=== PATIENT | male | born 1965 | race Hispanic/Latino ===

== ENCOUNTER 2018-02-16 09:15 | Inpatient (IN) | payer MEDICARE ==
[~2018-02-16] VITALS: Ht 188 cm; Wt 120.7 kg
[2018-02-16 09:55] LABS: BASOPHILS % (AUTO) 0.4 % (0.0-5.0); EOSINOPHILS % (AUTO) 1.1 % (0.0-8.0); HEMATOCRIT 29.8 % (42-54); LYMPHOCYTES % (AUTO) 5.6 % (21.0-51.0); MEAN CORPUSCULAR HGB CONC 33.1 g/dL (32.0-36.0); MEAN CORPUSCULAR VOLUME 78.6 fL (79-99); MONOCYTES % (AUTO) 1.9 % (3.0-13.0); NUCLEATED RED BLOOD CELLS 0.1 % (0.0-0.19); PLATELET COUNT (AUTO) 159 K/uL (130-400); RED CELL DISTRIBUTION WIDTH 17.5 % (11.0-15.5); WHITE BLOOD COUNT (AUTO) 6.7 K/uL (4.8-10.8)
[2018-02-16 10:04] LABS: INR 1.2 (0.85-1.15); PARTIAL THROMBOPLASTIN TIME 26.4 SEC (26.3-35.5); PROTHROMBIN TIME 12.6 SEC (9.6-11.6)
[2018-02-16 10:05] LABS: BILIRUBIN,URINE NEGATIVE (NEGATIVE); COLOR,URINE YELLOW (YELLOW); GLUCOSE, URINE (UA) 250 mg/dL (NEGATIVE); KETONES,URINE NEGATIVE (NEGATIVE); LEUKOCYTE ESTERASE ,URINE TRACE (NEGATIVE); NITRATE,URINE NEGATIVE (NEGATIVE); OCCULT BLOOD,URINE SMALL (NEGATIVE); PROTEIN,URINE >=300 (NEGATIVE)
[2018-02-16] MEDS ORDERED: SODIUM CHLORIDE 0.9% 1000ML 1,000 ML IV ONE (10:05)
[2018-02-16 10:06] LABS: APPEARANCE,URINE HAZY (CLEAR)
[2018-02-16] MEDS ORDERED: ACETAMINOPHEN EXTRA STRENGTH 500 MG TABLET ONE (10:06)
[2018-02-16 10:08] LABS: AMORPHOUS SEDIMENT,UR Few /LPF (None Seen); BACTERIA,URINE Few /HPF (None Seen); SQUAMOUS EPITHELIAL CELL,UR Few /HPF (0-2)
[2018-02-16 10:12] LABS: ALBUMIN 2.7 g/dL (3.5-5.0); BILIRUBIN,TOTAL 1.1 mg/dL (0.2-1.0); POTASSIUM 4.9 mmol/L (3.5-5.1); TOTAL PROTEIN, SERUM 7.7 g/dL (6.0-8.3)
[2018-02-16 10:16] LABS: CREATININE 8.2 mg/dL (0.5-1.5)
[2018-02-16] MEDS ORDERED: MEROPENEM 1 GM VIAL ONE (10:51)
[2018-02-16] MEDS ORDERED: VANCOMYCIN 1.75 GM in SODIUM CHLORIDE 0.9% 250 ML IV SCH (11:30)
[2018-02-16 14:25] VITALS: BP 114/52
[2018-02-16] MEDS ORDERED: VANCOMYCIN PROTOCOL PER PHARMACY IV SCH (14:45)
[2018-02-16 15:58] VITALS: BP 113/50
[2018-02-16] MEDS ORDERED: HYDRALAZINE HCL 20 MG/ML VIAL IV PRN (18:30)
[2018-02-16 19:31] VITALS: BP 111/59
[2018-02-16] MEDS: HYDROCODONE/ACETAMINOPHEN 5/325 MG TAB PO PRN (20:15)
[2018-02-16] MEDS: HEPARIN SODIUM 5000UNIT/ML 1ML VIAL SQ SCH (20:17)
[2018-02-16] MEDS: OSELTAMIVIR PHOSPHATE 75 MG CAP PO SCH (20:19)
[2018-02-16] MEDS: LEVOFLOXACIN 500 MG/D5W 100 ML 100 ML IV SCH (20:19)
[2018-02-16] MEDS: INSULIN HUMULIN R 100 UNIT/ML 3ML SQ SCH (21:25)
[2018-02-16 23:29] VITALS: BP 119/49
[2018-02-16] MEDS: IPRATROPIUM/ALBUTEROL SULFATE 3 ML SOLUTION IH SCH (23:42)
[2018-02-17 03:27] LABS: BASOPHILS % (AUTO) 0.2 % (0.0-5.0); EOSINOPHILS % (AUTO) 1.4 % (0.0-8.0); HEMATOCRIT 26.1 % (42-54); LYMPHOCYTES % (AUTO) 6.8 % (21.0-51.0); MEAN CORPUSCULAR HEMOGLOBIN 25.6 pg (27.0-33.0); MEAN CORPUSCULAR HGB CONC 32.7 g/dL (32.0-36.0); MEAN CORPUSCULAR VOLUME 78.1 fL (79-99); MONOCYTES % (AUTO) 11.8 % (3.0-13.0); NEUTROPHILS % (AUTO) 79.8 % (40.0-77.0); PLATELET COUNT (AUTO) 127 K/uL (130-400); RED BLOOD CELL COUNT(AUTO) 3.34 MIL/uL (4.50-6.20); RED CELL DISTRIBUTION WIDTH 17.6 % (11.0-15.5); WHITE BLOOD COUNT (AUTO) 12.9 K/uL (4.8-10.8)
[2018-02-17 03:46] LABS: ALBUMIN 2.1 g/dL (3.5-5.0); BILIRUBIN,TOTAL 1.2 mg/dL (0.2-1.0); MAGNESIUM 2.1 mg/dL (1.80-2.40); PHOSPHORUS 5.9 mg/dL (2.5-4.9); POTASSIUM 4.8 mmol/L (3.5-5.1); TOTAL PROTEIN, SERUM 6.6 g/dL (6.0-8.3)
[2018-02-17 03:46] LABS: ABG BASE EXCESS -1.4 mmol/L (-2.0-3.0); ABG HCO3 23.6 mmol/L (21.0-28.0); ABG OXYGEN SATURATION 96.5 % (95.0-99.0); ABG PCO2 41 mmHg (35-48)
[2018-02-17 03:49] VITALS: BP 107/65
[2018-02-17 03:52] LABS: CREATININE 9.3 mg/dL (0.5-1.5)
[2018-02-17] MEDS: HYDROCODONE/ACETAMINOPHEN 5/325 MG TAB PO PRN ×2 (05:09→15:51)
[2018-02-17] MEDS: HEPARIN SODIUM 5000UNIT/ML 1ML VIAL SQ SCH ×2 (05:10→18:30)
[2018-02-17] MEDS: INSULIN HUMULIN R 100 UNIT/ML 3ML SQ SCH ×4 (05:29→22:03)
[2018-02-17] MEDS: IPRATROPIUM/ALBUTEROL SULFATE 3 ML SOLUTION IH SCH ×3 (06:07→18:28)
[2018-02-17 07:40] VITALS: BP 97/52
[2018-02-17] MEDS: OSELTAMIVIR PHOSPHATE 75 MG CAP PO SCH (08:51)
[2018-02-17] MEDS: MEROPENEM 1 GM VIAL IVP SCH (08:51)
[2018-02-17] MEDS ORDERED: AMLO10TA2 PO (09:24)
[2018-02-17] MEDS ORDERED: LOSA50TA37 PO (09:24)
[2018-02-17] MEDS ORDERED: AEC81 PO (09:24)
[2018-02-17] MEDS ORDERED: CARV12.511 PO (09:24)
[2018-02-17] MEDS ORDERED: FURO40TA5 PO (09:24)
[2018-02-17] MEDS ORDERED: AMIT25TA9 PO (09:24)
[2018-02-17] MEDS ORDERED: PRAV20TA4 PO (09:24)
[2018-02-17] MEDS ORDERED: ESCI10TA54 PO (09:24)
[2018-02-17 11:16] VITALS: BP 113/61
[2018-02-17] MEDS ORDERED: COMPOUND IV REFRIGERATED 1 EACH IVSOLN MISC PRN (12:30)
[2018-02-17 12:46] LABS: CREATINE KINASE MB 1.2 ng/mL (0.5-3.6); TROPONIN I 0.04 ng/mL (0.00-0.06)
[2018-02-17] MEDS ORDERED: SODIUM CHLORIDE 0.9% 1000ML 1,000 ML IV ONE (13:34)
[2018-02-17] MEDS ORDERED: HEPARIN SODIUM 5000UNIT/ML 1ML VIAL IJ PRN (16:00)
[2018-02-17] MEDS ORDERED: SODIUM CHLORIDE 0.9% 1000ML 1,000 ML IV PRN (16:00)
[2018-02-17] MEDS ORDERED: 0.9% SODIUM CHLORIDE 250 ML IV BAG IV PRN (16:00)
[2018-02-17] MEDS ORDERED: ALBUMIN (HUMAN) 25% 100 ML IV PRN (16:00)
[2018-02-17 16:38] VITALS: BP 113/56
[2018-02-17 19:29] VITALS: BP 110/46
[2018-02-17 20:28] LABS: CREATINE KINASE MB 0.9 ng/mL (0.5-3.6)
[2018-02-17 23:33] VITALS: BP 115/59
[2018-02-18] VITALS (13 sets, daily range): BP systolic 117–147; BP diastolic 58–68
[2018-02-18] MEDS: IPRATROPIUM/ALBUTEROL SULFATE 3 ML SOLUTION IH SCH ×5 (00:19→23:35)
[2018-02-18 03:48] LABS: BASOPHILS % (AUTO) 0.7 % (0.0-5.0); EOSINOPHILS % (AUTO) 1.2 % (0.0-8.0); HEMATOCRIT 27.1 % (42-54); LYMPHOCYTES % (AUTO) 8.1 % (21.0-51.0); MEAN CORPUSCULAR HEMOGLOBIN 25.7 pg (27.0-33.0); MEAN CORPUSCULAR VOLUME 77.9 fL (79-99); MONOCYTES % (AUTO) 14.4 % (3.0-13.0); NEUTROPHILS % (AUTO) 75.6 % (40.0-77.0); PLATELET COUNT (AUTO) 158 K/uL (130-400); RED BLOOD CELL COUNT(AUTO) 3.48 MIL/uL (4.50-6.20); RED CELL DISTRIBUTION WIDTH 17.3 % (11.0-15.5)
[2018-02-18 04:02] LABS: INR 1.15 (0.85-1.15); PARTIAL THROMBOPLASTIN TIME 31.6 SEC (26.3-35.5)
[2018-02-18 04:11] LABS: CARBON DIOXIDE 26 mmol/L (21-32); CHLORIDE 95 mmol/L (101-111); CREATINE KINASE MB < 0.5 ng/mL (0.5-3.6); CREATINE KINASE, TOTAL 52 U/L (21-232); CREATININE 7.6 mg/dL (0.5-1.5); GLOMERULAR FILTR. RATE CALC 8 mL/min (>60); GLUCOSE,RANDOM 227 mg/dL (70-105); POTASSIUM 4.6 mmol/L (3.5-5.1); SODIUM SERUM 133 mmol/L (136-145); UREA NITROGEN, BLOOD 56 mg/dL (7-18)
[2018-02-18] MEDS: INSULIN HUMULIN R 100 UNIT/ML 3ML SQ SCH ×4 (07:03→21:00)
[2018-02-18] MEDS: HYDROCODONE/ACETAMINOPHEN 5/325 MG TAB PO PRN ×2 (07:17→22:44)
[2018-02-18] MEDS ORDERED: LIDOCAINE HCL 1% MDV 50ML VIAL ONE (08:15)
[2018-02-18] MEDS: MEROPENEM 1 GM VIAL IVP SCH ×2 (09:00→10:08)
[2018-02-18] MEDS: VANCOMYCIN 1.5 GM in SODIUM CHLORIDE 0.9% 250 ML IV SCH (09:00)
[2018-02-18] MEDS: BACITRACIN 28.4 GM OINT TP SCH (14:00)
[2018-02-18] MEDS: PHARMACY COMMUNICATION MISC SCH (14:00)
[2018-02-18] MEDS ORDERED: ACETAMINOPHEN 325 MG TAB PO PRN (16:30)
[2018-02-18] MEDS: LEVOFLOXACIN 500 MG/D5W 100 ML 100 ML IV SCH ×2 (18:30→22:42)
[2018-02-18] MEDS: OSELTAMIVIR PHOSPHATE 75 MG CAP PO SCH (22:41)
[2018-02-19] MEDS: VANCOMYCIN 1.5 GM in SODIUM CHLORIDE 0.9% 250 ML IV SCH (00:34)
[2018-02-19 03:25] VITALS: BP 114/55
[2018-02-19] MEDS: IPRATROPIUM/ALBUTEROL SULFATE 3 ML SOLUTION IH SCH ×4 (06:26→22:36)
[2018-02-19] MEDS: INSULIN HUMULIN R 100 UNIT/ML 3ML SQ SCH ×4 (06:53→21:55)
[2018-02-19 07:22] VITALS: BP 98/56
[2018-02-19] MEDS: MEROPENEM 1 GM VIAL IVP SCH (10:04)
[2018-02-19] MEDS: PHARMACY COMMUNICATION MISC SCH (10:05)
[2018-02-19] MEDS: BACITRACIN 28.4 GM OINT TP SCH (10:05)
[2018-02-19 11:39] VITALS: BP 119/44
[2018-02-19] MEDS: HYDROCODONE/ACETAMINOPHEN 5/325 MG TAB PO PRN (15:58)
[2018-02-19 16:01] VITALS: BP 134/65
[2018-02-19] MEDS ORDERED: FLUCONAZOLE 400 MG/NS 200 ML 200 ML IV ONE (17:15)
[2018-02-19] MEDS ORDERED: FLUCONAZOLE 200 MG/NS 100 ML 100 ML IV SCH (17:44)
[2018-02-19] MEDS: OSELTAMIVIR PHOSPHATE 75 MG CAP PO SCH (19:49)
[2018-02-19 20:16] VITALS: BP 128/63
[2018-02-19 23:52] VITALS: BP 116/58
[2018-02-20 04:40] VITALS: BP 113/65
[2018-02-20] MEDS: IPRATROPIUM/ALBUTEROL SULFATE 3 ML SOLUTION IH SCH ×3 (06:14→18:23)
[2018-02-20 06:37] VITALS: BP 113/65
[2018-02-20] MEDS: INSULIN HUMULIN R 100 UNIT/ML 3ML SQ SCH ×4 (07:11→21:07)
[2018-02-20 07:30] VITALS: BP 139/71
[2018-02-20] MEDS: MEROPENEM 1 GM VIAL IVP SCH (09:13)
[2018-02-20] MEDS: PHARMACY COMMUNICATION MISC SCH (09:13)
[2018-02-20] MEDS: HYDROCODONE/ACETAMINOPHEN 5/325 MG TAB PO PRN ×2 (09:18→20:11)
[2018-02-20] MEDS: BACITRACIN 28.4 GM OINT TP SCH (09:21)
[2018-02-20 09:50] LABS: BASOPHILS % (AUTO) 0.4 % (0.0-5.0); EOSINOPHILS % (AUTO) 2.6 % (0.0-8.0); HEMATOCRIT 27.2 % (42-54); MEAN CORPUSCULAR HEMOGLOBIN 26.1 pg (27.0-33.0); MEAN CORPUSCULAR VOLUME 79.2 fL (79-99); MONOCYTES % (AUTO) 9.3 % (3.0-13.0); NEUTROPHILS % (AUTO) 78.7 % (40.0-77.0); PLATELET COUNT (AUTO) 242 K/uL (130-400); RED BLOOD CELL COUNT(AUTO) 3.44 MIL/uL (4.50-6.20); RED CELL DISTRIBUTION WIDTH 17.7 % (11.0-15.5); WHITE BLOOD COUNT (AUTO) 15.4 K/uL (4.8-10.8)
[2018-02-20 10:15] LABS: HEMOGLOBIN A1C 9.5 % (4.0-6.0)
[2018-02-20 11:11] LABS: ALBUMIN 2.1 g/dL (3.5-5.0); BILIRUBIN,TOTAL 0.6 mg/dL (0.2-1.0); POTASSIUM 4.4 mmol/L (3.5-5.1)
[2018-02-20 11:21] LABS: CREATININE 8.4 mg/dL (0.5-1.5)
[2018-02-20 11:38] VITALS: BP 148/68
[2018-02-20] MEDS: HEPARIN SODIUM 5000UNIT/ML 1ML VIAL SQ SCH (11:41)
[2018-02-20] MEDS: FLUCONAZOLE 400 MG/NS 200 ML 200 ML IV NR (14:46)
[2018-02-20] MEDS: VANCOMYCIN 1.5 GM in SODIUM CHLORIDE 0.9% 250 ML IV SCH (14:46)
[2018-02-20 16:19] VITALS: BP 138/73
[2018-02-20] MEDS: OSELTAMIVIR PHOSPHATE 75 MG CAP PO SCH (20:07)
[2018-02-20 20:11] VITALS: BP 116/66
[2018-02-20] MEDS: INSULIN GLARGINE 100 UNITS/ML 10 ML VIAL SQ SCH (21:08)
[2018-02-21] MEDS: IPRATROPIUM/ALBUTEROL SULFATE 3 ML SOLUTION IH SCH ×5 (00:29→23:56)
[2018-02-21 01:58] VITALS: BP 134/66
[2018-02-21 03:24] VITALS: BP 123/66
[2018-02-21 04:03] LABS: HEMATOCRIT 24.7 % (42-54); MEAN CORPUSCULAR VOLUME 78.6 fL (79-99); PLATELET COUNT (AUTO) 280 K/uL (130-400); RED BLOOD CELL COUNT(AUTO) 3.14 MIL/uL (4.50-6.20); RED CELL DISTRIBUTION WIDTH 17.6 % (11.0-15.5); WHITE BLOOD COUNT (AUTO) 13.6 K/uL (4.8-10.8)
[2018-02-21] MEDS: INSULIN GLARGINE 100 UNITS/ML 10 ML VIAL SQ SCH ×2 (05:58→20:31)
[2018-02-21] MEDS: INSULIN HUMULIN R 100 UNIT/ML 3ML SQ SCH ×4 (05:58→20:42)
[2018-02-21 07:16] VITALS: BP 127/62
[2018-02-21] MEDS: FLUCONAZOLE 200 MG/NS 100 ML 100 ML IV SCH (09:03)
[2018-02-21] MEDS: MEROPENEM 1 GM VIAL IVP SCH (09:03)
[2018-02-21] MEDS: PHARMACY COMMUNICATION MISC SCH (09:04)
[2018-02-21] MEDS: BACITRACIN 28.4 GM OINT TP SCH (09:04)
[2018-02-21 11:13] VITALS: BP 131/59
[2018-02-21 16:45] VITALS: BP 116/50
[2018-02-21 20:01] VITALS: BP 147/68
[2018-02-21] MEDS: OSELTAMIVIR PHOSPHATE 75 MG CAP PO SCH (20:28)
[2018-02-21] MEDS: HYDROCODONE/ACETAMINOPHEN 5/325 MG TAB PO PRN (20:29)
[2018-02-22] VITALS (7 sets, daily range): BP systolic 129–160; BP diastolic 56–73
[2018-02-22] MEDS: INSULIN GLARGINE 100 UNITS/ML 10 ML VIAL SQ SCH ×2 (06:03→20:54)
[2018-02-22] MEDS: INSULIN HUMULIN R 100 UNIT/ML 3ML SQ SCH ×5 (06:04→21:00)
[2018-02-22] MEDS: IPRATROPIUM/ALBUTEROL SULFATE 3 ML SOLUTION IH SCH ×3 (06:12→18:57)
[2018-02-22] MEDS: MEROPENEM 1 GM VIAL IVP SCH (08:36)
[2018-02-22] MEDS: PHARMACY COMMUNICATION MISC SCH (09:00)
[2018-02-22] MEDS: HYDROCODONE/ACETAMINOPHEN 5/325 MG TAB PO PRN (10:03)
[2018-02-22] MEDS: VANCOMYCIN 1.5 GM in SODIUM CHLORIDE 0.9% 250 ML IV SCH (10:07)
[2018-02-22 11:20] LABS: BASOPHILS % (AUTO) 0.4 % (0.0-5.0); EOSINOPHILS % (AUTO) 3.5 % (0.0-8.0); HEMATOCRIT 25.1 % (42-54); LYMPHOCYTES % (AUTO) 11.6 % (21.0-51.0); MEAN CORPUSCULAR HEMOGLOBIN 26.5 pg (27.0-33.0); MEAN CORPUSCULAR HGB CONC 33.5 g/dL (32.0-36.0); MEAN CORPUSCULAR VOLUME 79.2 fL (79-99); MONOCYTES % (AUTO) 9.2 % (3.0-13.0); NEUTROPHILS % (AUTO) 75.3 % (40.0-77.0); PLATELET COUNT (AUTO) 305 K/uL (130-400); RED BLOOD CELL COUNT(AUTO) 3.17 MIL/uL (4.50-6.20); RED CELL DISTRIBUTION WIDTH 17.7 % (11.0-15.5); WHITE BLOOD COUNT (AUTO) 12.6 K/uL (4.8-10.8)
[2018-02-22 11:37] LABS: POTASSIUM 4.1 mmol/L (3.5-5.1)
[2018-02-22 11:40] LABS: CREATININE 8.8 mg/dL (0.5-1.5)
[2018-02-22] MEDS: BACITRACIN 28.4 GM OINT TP SCH (12:18)
[2018-02-22] MEDS: FLUCONAZOLE 200 MG/NS 100 ML 100 ML IV SCH (12:21)
[2018-02-22] MEDS: OSELTAMIVIR PHOSPHATE 75 MG CAP PO SCH (20:19)
[2018-02-23] MEDS: IPRATROPIUM/ALBUTEROL SULFATE 3 ML SOLUTION IH SCH ×3 (00:29→11:02)
[2018-02-23 04:00] VITALS: BP 143/71
[2018-02-23 04:42] LABS: BASOPHILS % (AUTO) 0.3 % (0.0-5.0); EOSINOPHILS % (AUTO) 4.4 % (0.0-8.0); HEMATOCRIT 27.8 % (42-54); MEAN CORPUSCULAR HEMOGLOBIN 27.1 pg (27.0-33.0); MEAN CORPUSCULAR HGB CONC 34.2 g/dL (32.0-36.0); MEAN CORPUSCULAR VOLUME 79.4 fL (79-99); MONOCYTES % (AUTO) 8.4 % (3.0-13.0); NEUTROPHILS % (AUTO) 69.9 % (40.0-77.0); PLATELET COUNT (AUTO) 422 K/uL (130-400); RED CELL DISTRIBUTION WIDTH 17.2 % (11.0-15.5); WHITE BLOOD COUNT (AUTO) 11.3 K/uL (4.8-10.8)
[2018-02-23 05:06] LABS: POTASSIUM 4.6 mmol/L (3.5-5.1)
[2018-02-23 05:31] LABS: CREATININE 10.6 mg/dL (0.5-1.5)
[2018-02-23] MEDS: INSULIN HUMULIN R 100 UNIT/ML 3ML SQ SCH ×3 (05:34→16:30)
[2018-02-23] MEDS: INSULIN GLARGINE 100 UNITS/ML 10 ML VIAL SQ SCH (06:08)
[2018-02-23 08:00] VITALS: BP 137/75
[2018-02-23 11:00] VITALS: BP 131/80
[2018-02-23] MEDS: FLUCONAZOLE 400 MG/NS 200 ML 200 ML IV NR (14:23)
[2018-02-23] MEDS: MEROPENEM 1 GM VIAL IVP SCH (14:23)
[2018-02-23] MEDS: BACITRACIN 28.4 GM OINT TP SCH (14:24)
[2018-02-23] MEDS: PHARMACY COMMUNICATION MISC SCH (14:24)
[2018-02-24] MEDS ORDERED: FOLIC ACID 1 MG TABLET PO SCH (09:00)
[2018-02-24] MEDS ORDERED: THIAMINE HCL 100 MG TABLET PO SCH (09:00)
== END 2018-02-23 16:57 | DRG 314 ==
LOC: EDH 09:15 → EDHIP 11:56 → 2AH 14:00
PROVIDERS: ADMIT Family Medicine; ATTEND Family Medicine
PROC: 5A1D70Z Performance of Urinary Filtration, Intermittent, Less than 6 Hours Per Day (ICD-10-PCS; principal; 2018-02-17)
PROC: 5A1D70Z Performance of Urinary Filtration, Intermittent, Less than 6 Hours Per Day (ICD-10-PCS; 2018-02-18)
PROC: 5A1D70Z Performance of Urinary Filtration, Intermittent, Less than 6 Hours Per Day (ICD-10-PCS; 2018-02-18)
PROC: 5A09357 Assistance with Respiratory Ventilation, Less than 24 Consecutive Hours, Continuous Positive Airway Pressure (ICD-10-PCS; 2018-02-18)
PROC: 05PY33Z Removal of Infusion Device from Upper Vein, Percutaneous Approach (ICD-10-PCS; 2018-02-18)
PROC: 5A09357 Assistance with Respiratory Ventilation, Less than 24 Consecutive Hours, Continuous Positive Airway Pressure (ICD-10-PCS; 2018-02-19)
PROC: 5A1D70Z Performance of Urinary Filtration, Intermittent, Less than 6 Hours Per Day (ICD-10-PCS; 2018-02-20)
PROC: 5A09357 Assistance with Respiratory Ventilation, Less than 24 Consecutive Hours, Continuous Positive Airway Pressure (ICD-10-PCS; 2018-02-20)
PROC: 5A1D70Z Performance of Urinary Filtration, Intermittent, Less than 6 Hours Per Day (ICD-10-PCS; 2018-02-23)
DX: T82.7XXA Infection and inflammatory reaction due to other cardiac and vascular devices, implants and grafts, initial encounter (principal); A41.9 Sepsis, unspecified organism; I12.0 Hypertensive chronic kidney disease with stage 5 chronic kidney disease or end stage renal disease; R65.20 Severe sepsis without septic shock; J18.9 Pneumonia, unspecified organism; J81.1 Chronic pulmonary edema; J96.91 Respiratory failure, unspecified with hypoxia; J96.01 Acute respiratory failure with hypoxia; N18.6 End stage renal disease; E87.1 Hypo-osmolality and hyponatremia; J44.0 Chronic obstructive pulmonary disease with (acute) lower respiratory infection; J44.1 Chronic obstructive pulmonary disease with (acute) exacerbation; L03.119 Cellulitis of unspecified part of limb; M86.9 Osteomyelitis, unspecified; E11.21 Type 2 diabetes mellitus with diabetic nephropathy; E11.42 Type 2 diabetes mellitus with diabetic polyneuropathy; W19.XXXA Unspecified fall, initial encounter; B34.9 Viral infection, unspecified; B95.2 Enterococcus as the cause of diseases classified elsewhere; B96.89 Other specified bacterial agents as the cause of diseases classified elsewhere; D63.8 Anemia in other chronic diseases classified elsewhere; E11.22 Type 2 diabetes mellitus with diabetic chronic kidney disease; E11.51 Type 2 diabetes mellitus with diabetic peripheral angiopathy without gangrene; E11.621 Type 2 diabetes mellitus with foot ulcer; E11.628 Type 2 diabetes mellitus with other skin complications; E11.69 Type 2 diabetes mellitus with other specified complication; E66.01 Morbid (severe) obesity due to excess calories; E78.5 Hyperlipidemia, unspecified; E87.70 Fluid overload, unspecified; G47.33 Obstructive sleep apnea (adult) (pediatric); L97.529 Non-pressure chronic ulcer of other part of left foot with unspecified severity; M12.9 Arthropathy, unspecified; M14.679 Charcot's joint, unspecified ankle and foot; Y83.8 Other surgical procedures as the cause of abnormal reaction of the patient, or of later complication, without mention of misadventure at the time of the procedure; Z99.2 Dependence on renal dialysis; Y93.89 Activity, other specified; Y92.89 Other specified places as the place of occurrence of the external cause; Y99.8 Other external cause status; Z91.19 Patient's noncompliance with other medical treatment and regimen; Z91.15 Patient's noncompliance with renal dialysis; Z89.422 Acquired absence of other left toe(s); Z87.891 Personal history of nicotine dependence; Z83.3 Family history of diabetes mellitus; Z82.49 Family history of ischemic heart disease and other diseases of the circulatory system
CPT/HCPCS: 36415; 36589; 36600; 71045; 73630; 73718; 74176; 78580; 80048; 80053; 80202; 81001; 82550; 82553; 82803; 82948; 83036; 83605; 83690; 83735; 83874; 83880; 84100; 84484; 85025; 85027; 85610; 85730; 87040; 87070; 87076; 87077; 87088; 87186; 87804; 90935; 93005; 93306; 93970; 94640; 94660; 94664; 99291; A4218; A9540; J1450; J1644; J1815; J1956; J2185; J3370; J3490; J7030

== ENCOUNTER 2018-03-03 16:05 | Inpatient (IN) | payer MEDICARE ==
[~2018-03-03] VITALS: Ht 188 cm; Wt 118.1 kg
[~2018-03-03 16:05] MED LIST: AEC81 PO; AMIT25TA9 PO; AMLO10TA2 PO; CARV12.511 PO; ESCI10TA54 PO; FURO40TA5 PO; LOSA50TA37 PO; PRAV20TA4 PO
[2018-03-03 18:52] VITALS: BP 110/72
[2018-03-03 20:10] VITALS: BP 98/46
[2018-03-03] MEDS ORDERED: AMLO10TA4 PO (20:39)
[2018-03-03] MEDS ORDERED: HEPA500018 SQ (20:39)
[2018-03-03] MEDS ORDERED: ALBU2.5V2 IH (20:39)
[2018-03-03] MEDS ORDERED: DARB60DI SQ (20:39)
[2018-03-03] MEDS ORDERED: HYDR20VI6 IV (20:39)
[2018-03-03] MEDS ORDERED: INSU100V12 SQ (20:39)
[2018-03-03] MEDS ORDERED: VANC750P10 IV (20:39)
[2018-03-03] MEDS ORDERED: HYDR-309 PO (20:39)
[2018-03-03] MEDS ORDERED: ATOR10 PO (20:39)
[2018-03-03] MEDS ORDERED: AEC81 PO (20:39)
[2018-03-03] MEDS ORDERED: FURO40TA5 PO (20:39)
[2018-03-03] MEDS ORDERED: PROM25AM IV (20:39)
[2018-03-03] MEDS ORDERED: PANT40TA25 PO (20:39)
[2018-03-03] MEDS ORDERED: NITR0.4T SL (20:39)
[2018-03-03] MEDS ORDERED: AMIT25 PO (20:39)
[2018-03-03] MEDS ORDERED: CARV25TA77 PO (20:39)
[2018-03-03] MEDS ORDERED: FLUC100IVB IV (20:39)
[2018-03-03] MEDS ORDERED: MERO1I IV (20:39)
[2018-03-03] MEDS ORDERED: ACET-2900 PO (20:39)
[2018-03-03] MEDS ORDERED: VANCOMYCIN IV SCH (20:45)
[2018-03-03] MEDS ORDERED: GLUCAGON 1MG KIT 1 MG ML IM PRN (20:45)
[2018-03-03] MEDS ORDERED: PROMETHAZINE HCL 25 MG/ML 1ML AMPULE IM PRN (20:45)
[2018-03-03] MEDS ORDERED: NITROGLYCERIN 0.4 MG SL TAB SL PRN (20:45)
[2018-03-03] MEDS ORDERED: HYDROCODONE/ACETAMINOPHEN 5/325 MG TAB PO PRN (20:45)
[2018-03-03] MEDS ORDERED: ACETAMINOPHEN EXTENDED RELEASE 650 MG TABLET PO PRN ×2 (20:45)
[2018-03-03] MEDS ORDERED: [UNRECOGNIZED DRUG - OTHER] IV SCH (20:45)
[2018-03-03] MEDS ORDERED: SOD CHLORIDE IV SCH (20:45)
[2018-03-03] MEDS ORDERED: HYDRALAZINE HCL 20 MG/ML VIAL IV PRN (20:45)
[2018-03-03] MEDS ORDERED: [UNRECOGNIZED DRUG - OTHER] IV SCH (20:45)
[2018-03-03] MEDS ORDERED: DEXTROSE 50%-WATER 50 ML DISP.SYRIN IV PRN (20:45)
[2018-03-03] MEDS ORDERED: DARBEPOETIN ALFA IN POLYSORBAT 60 MCG SQ SCH (20:45)
[2018-03-03] MEDS ORDERED: ATORVASTATIN CALCIUM 10 MG TABLET PO SCH (21:00)
[2018-03-03] MEDS: HEPARIN SODIUM 5000UNIT/ML 1ML VIAL SQ SCH (21:00)
[2018-03-03] MEDS ORDERED: PANTOPRAZOLE SODIUM 40 MG TABLET.DR PO SCH (21:00)
[2018-03-03] MEDS ORDERED: AMITRIPTYLINE HCL 25 MG TABLET PO SCH (21:00)
[2018-03-03] MEDS: INSULIN LISPRO 100 UNIT/ML 3ML SQ SCH (21:00)
[2018-03-03] MEDS: FUROSEMIDE 40 MG TABLET PO SCH (22:07)
[2018-03-03] MEDS: INSULIN GLARGINE 100 UNITS/ML 10 ML VIAL SQ SCH (22:18)
[2018-03-03] MEDS: ALBUTEROL SULFATE 0.083% 2.5 MG/3 ML INH IH SCH (23:23)
[2018-03-03 23:47] VITALS: BP 99/49
[2018-03-04] VITALS (21 sets, daily range): BP systolic 86–128; BP diastolic 40–92
[2018-03-04] MEDS: ALBUTEROL SULFATE 0.083% 2.5 MG/3 ML INH IH SCH ×2 (06:00→11:15)
[2018-03-04] MEDS: INSULIN LISPRO 100 UNIT/ML 3ML SQ SCH ×3 (06:15→16:30)
[2018-03-04] MEDS ORDERED: SODIUM CHLORIDE 0.9% 1000ML 1,000 ML IV ONE (06:18)
[2018-03-04 06:31] LABS: HEMATOCRIT 24.7 % (42-54); MEAN CORPUSCULAR HEMOGLOBIN 25.6 pg (27.0-33.0); MEAN CORPUSCULAR HGB CONC 32.1 g/dL (32.0-36.0); MEAN CORPUSCULAR VOLUME 79.9 fL (79-99); NUCLEATED RED BLOOD CELLS 0.1 % (0.0-0.19); PLATELET COUNT (AUTO) 484 K/uL (130-400); RED BLOOD CELL COUNT(AUTO) 3.09 MIL/uL (4.50-6.20); RED CELL DISTRIBUTION WIDTH 16.6 % (11.0-15.5); WHITE BLOOD COUNT (AUTO) 7.1 K/uL (4.8-10.8)
[2018-03-04] MEDS ORDERED: LIDOCAINE HCL 1% 20 ML VIAL ONE (06:37)
[2018-03-04] MEDS ORDERED: BUPIVACAINE/PF 0.5% 30ML VIAL ONE (06:37)
[2018-03-04 06:40] LABS: CREATININE 6.7 mg/dL (0.5-1.5); POTASSIUM 3.9 mmol/L (3.5-5.1)
[2018-03-04 06:42] LABS: INR 1.16 (0.85-1.15); PARTIAL THROMBOPLASTIN TIME 29.9 SEC (26.3-35.5); PROTHROMBIN TIME 12.1 SEC (9.6-11.6)
[2018-03-04 06:44] LABS: ALBUMIN 2.2 g/dL (3.5-5.0); BILIRUBIN,TOTAL 0.5 mg/dL (0.2-1.0); TOTAL PROTEIN, SERUM 7.4 g/dL (6.0-8.3)
[2018-03-04] MEDS ORDERED: MIDAZOLAM HCL 1 MG/ML 2ML VIAL ONE (07:00)
[2018-03-04] MEDS ORDERED: FENTANYL CITRATE PF 50 MCG/1 ML 2ML VIAL ONE (07:00)
[2018-03-04] MEDS ORDERED: PROPOFOL 10 MG/ML 20ML VIAL IV ONE (07:00)
[2018-03-04] MEDS: FUROSEMIDE 40 MG TABLET PO SCH (09:00)
[2018-03-04] MEDS ORDERED: MEROPENEM 1 GM VIAL IVP SCH (09:00)
[2018-03-04] MEDS ORDERED: Escitalopram Oxalate 10 MG PO SCH (09:00)
[2018-03-04] MEDS ORDERED: MEROPENEM IV SCH (09:00)
[2018-03-04] MEDS: INSULIN GLARGINE 100 UNITS/ML 10 ML VIAL SQ SCH (09:00)
[2018-03-04] MEDS ORDERED: CARVEDILOL 25 MG TABLET PO SCH (09:00)
[2018-03-04] MEDS ORDERED: LOSARTAN 50 MG TABLET PO SCH (09:00)
[2018-03-04] MEDS: HEPARIN SODIUM 5000UNIT/ML 1ML VIAL SQ SCH (09:00)
[2018-03-04] MEDS ORDERED: Pravastatin Sodium 20 MG PO SCH (09:00)
[2018-03-04] MEDS ORDERED: AMLODIPINE BESYLATE 5 MG TAB PO SCH (09:00)
[2018-03-04] MEDS ORDERED: ASPIRIN 81 MG EC TAB PO SCH (09:00)
[2018-03-05] MEDS ORDERED: VANCOMYCIN 0.75 GM in SODIUM CHLORIDE 0.9% 250 ML IV SCH (16:00)
[2018-03-05] MEDS ORDERED: FLUCONAZOLE 200 MG/NS 100 ML 100 ML IV SCH (16:00)
== END 2018-03-04 17:45 | disposition home or self-care (01) | DRG 239 ==
LOC: 3AH 17:46
PROVIDERS: ADMIT Internal Medicine Critical Care Medicine; ATTEND Internal Medicine Critical Care Medicine
PROC: 0Y6N0ZB Detachment at Left Foot, Partial 2nd Ray, Open Approach (ICD-10-PCS; 2018-03-04)
PROC: 0Y6N0ZC Detachment at Left Foot, Partial 3rd Ray, Open Approach (ICD-10-PCS; 2018-03-04)
PROC: 0Y6N0ZD Detachment at Left Foot, Partial 4th Ray, Open Approach (ICD-10-PCS; 2018-03-04)
PROC: 0Y6N0ZF Detachment at Left Foot, Partial 5th Ray, Open Approach (ICD-10-PCS; 2018-03-04)
PROC: 0Y6N0Z9 Detachment at Left Foot, Partial 1st Ray, Open Approach (ICD-10-PCS; principal; 2018-03-04 07:00)
DX: E11.52 Type 2 diabetes mellitus with diabetic peripheral angiopathy with gangrene (principal); J18.9 Pneumonia, unspecified organism; E11.22 Type 2 diabetes mellitus with diabetic chronic kidney disease; E11.621 Type 2 diabetes mellitus with foot ulcer; E66.01 Morbid (severe) obesity due to excess calories; M86.672 Other chronic osteomyelitis, left ankle and foot; I12.0 Hypertensive chronic kidney disease with stage 5 chronic kidney disease or end stage renal disease; N18.6 End stage renal disease; M14.679 Charcot's joint, unspecified ankle and foot; L97.529 Non-pressure chronic ulcer of other part of left foot with unspecified severity; E11.69 Type 2 diabetes mellitus with other specified complication; E78.5 Hyperlipidemia, unspecified; G47.33 Obstructive sleep apnea (adult) (pediatric); Z91.19 Patient's noncompliance with other medical treatment and regimen; Z99.2 Dependence on renal dialysis; Z68.33 Body mass index [BMI] 33.0-33.9, adult
CPT/HCPCS: 36415; 80053; 82948; 85027; 85610; 85730; 87070; 87076; 88305; 88311; 94640; 94664; A4218; J2185; J2250; J2704; J3010; J3490; J7030

== ENCOUNTER 2023-02-26 05:50 | Day surgery (SDC) | payer OTHER ==
[2023-02-24 10:04] LABS: BASOPHILS % (AUTO) 0.4 % (0.0-5.0); EOSINOPHILS % (AUTO) 5.5 % (0.0-8.0); HEMATOCRIT 35.3 % (42-54); LYMPHOCYTES % (AUTO) 24.1 % (21.0-51.0); MEAN CORPUSCULAR HEMOGLOBIN 28.2 pg (27.0-33.0); MEAN CORPUSCULAR HGB CONC 31.7 g/dL (32.0-36.0); MEAN CORPUSCULAR VOLUME 88.9 fL (79-99); MONOCYTES % (AUTO) 8.8 % (3.0-13.0); NEUTROPHILS % (AUTO) 60.8 % (40.0-77.0); PLATELET COUNT (AUTO) 216 K/uL (130-400); RED BLOOD CELL COUNT(AUTO) 3.97 MIL/uL (4.50-6.20); RED CELL DISTRIBUTION WIDTH 16.2 % (11.0-15.5); WHITE BLOOD COUNT (AUTO) 4.5 K/uL (4.8-10.8)
[2023-02-24 10:11] LABS: CREATININE 6.8 mg/dL (0.5-1.5); POTASSIUM 4.7 mmol/L (3.5-5.1)
[2023-02-24 10:14] LABS: INR 1.1 (0.85-1.15); PROTHROMBIN TIME 11.9 SEC (9.6-11.6)
[2023-02-24 10:16] LABS: PARTIAL THROMBOPLASTIN TIME 28.7 SEC (26.3-35.5)
[2023-02-24 10:28] VITALS: BP 160/78
[2023-02-24 10:40] LABS: B-TYPE NATRIURETIC PEPTIDE 106 pg/mL (0-100)
[2023-02-26] VITALS (10 sets, daily range): BP systolic 108–134; BP diastolic 57–74
[~2023-02-26] VITALS: Ht 188 cm; Wt 113.0 kg
[~2023-02-26 05:50] MED LIST changes: -AMIT25TA9 PO; -AMLO10TA2 PO; +CALC667C10 PO; -CARV12.511 PO; +CLOP75TA32 PO; +DULO20CA18 PO; -ESCI10TA54 PO; -FURO40TA5 PO; +GABA300C PO; +INSLAN SQ; +ISOS20TA85 PO; +LEVE500T19 PO; -LOSA50TA37 PO; +METO-408 PO; +NITR0.4T SL; +OMEP40CA21 PO; +PIOG45TA64 PO; +SEMA2PEN SQ; +VITAMIN D PO
[2023-02-26] MEDS ORDERED: 0.9%NACL 1000ML 1,000 ML IV ONE (06:17)
[2023-02-26] MEDS ORDERED: LIDOCAINE HCL 400MG/20ML VIAL ONE (07:05)
[2023-02-26] MEDS ORDERED: MIDAZOLAM HCL 1 MG/ML 2ML VIAL ONE ×2 (07:05→09:12)
[2023-02-26] MEDS ORDERED: NITROGLYCERIN 50MG VIAL ONE (07:06)
[2023-02-26] MEDS ORDERED: FENTANYL CITRATE PF 50 MCG/1 ML 2ML VIAL ONE (07:06)
[2023-02-26] MEDS ORDERED: IODIXANOL 320 MG/ML 100 ML VIAL ONE (07:06)
[2023-02-26] MEDS ORDERED: HEPARIN 10,000 UNIT/10ML (1,000 UNIT/ML) VIAL ONE (07:06)
[2023-02-26] MEDS ORDERED: NICARDIPINE 25MG INJ IV ONE (08:04)
[2023-02-26] MEDS ORDERED: CLOPIDOGREL 300MG TAB ONE (08:11)
== END 2023-02-26 13:35 | disposition home or self-care (01) ==
LOC: DAH 05:50
PROVIDERS: ATTEND Internal Medicine Cardiovascular Disease
DX: I70.235 Atherosclerosis of native arteries of right leg with ulceration of other part of foot (principal); E11.51 Type 2 diabetes mellitus with diabetic peripheral angiopathy without gangrene; L97.518 Non-pressure chronic ulcer of other part of right foot with other specified severity; I70.92 Chronic total occlusion of artery of the extremities; E11.22 Type 2 diabetes mellitus with diabetic chronic kidney disease; I12.0 Hypertensive chronic kidney disease with stage 5 chronic kidney disease or end stage renal disease; N18.6 End stage renal disease; R56.9 Unspecified convulsions; I45.10 Unspecified right bundle-branch block; E78.5 Hyperlipidemia, unspecified; G47.33 Obstructive sleep apnea (adult) (pediatric); F41.9 Anxiety disorder, unspecified; F32.A Depression, unspecified; Z99.2 Dependence on renal dialysis; Z90.49 Acquired absence of other specified parts of digestive tract; Z98.890 Other specified postprocedural states; Z79.82 Long term (current) use of aspirin; Z79.4 Long term (current) use of insulin; Z82.49 Family history of ischemic heart disease and other diseases of the circulatory system; Z82.3 Family history of stroke; Z79.01 Long term (current) use of anticoagulants; Z79.899 Other long term (current) drug therapy
CPT/HCPCS: 80048; 83880; 85025; 85610; 85730; 71045; 93005; 37229; 37225; 82948 ×2; 75716; C1894 ×2; C1769 ×4; C1887; C1760; C1893; C1724; C1725 ×2; C1727; C9772; J3010; J3490 ×3; J7030; J1644 ×3; J2250 ×2; Q9967; A4215; A4222; A4221; A4663; A4216; A4606; A4223 ×3; 36415; 37232; 75774; 99156; 99157; C9766; C9774